=== PATIENT | male | born 1990 | race Caucasian/White ===

== ENCOUNTER 2018-09-24 16:38 | Emergency (ER) | payer BC ==
[~2018-09-24] VITALS: Ht 182.9 cm; Wt 79.4 kg
[2018-09-24 17:20] LABS: ABSOLUTE BASOPHILS 0.1 thou/uL (0.0-0.2); ABSOLUTE EOSINOPHILS 0.3 thou/uL (0.0-0.7); ABSOLUTE LYMPHOCYTES 2.2 thou/uL (0.8-5.3); ABSOLUTE MONOCYTES 0.6 thou/uL (0.0-1.2); ABSOLUTE NEUTROPHILS 3.1 thou/uL (1.6-8.1); BASOPHILS 0.8 %; EOSINOPHILS 4.7 %; HEMATOCRIT 42.2 % (42.0-52.0); HEMOGLOBIN 14.3 gm/dL (14.0-18.0); LYMPHOCYTES 35.4 %; MCH 28.6 pg (26.0-34.0); MCHC 33.8 g/dL (28.0-37.0); MCV 84.4 fL (80.0-100.0); MONOCYTES 9.1 %; MPV 8.3 fl. (7.2-11.1); NUCLEATED RBCS 0 /100WBC; PLATELET COUNT* 242 thou/uL (150-400); RDW-CV 13.5 % (10.5-14.5); WBC 6.3 thou/uL (4.0-11.0)
[2018-09-24 17:27] LABS: ANION GAP 11 mmol/L (7-16); BUN 14 mg/dL (7-18); CALCIUM 8.8 mg/dL (8.5-10.1); CHLORIDE 104 mmol/L (98-107); CO2 25 mmol/L (21-32); GLUCOSE 91 mg/dL (70-99); SODIUM 140 mmol/L (136-145)
[2018-09-24 17:36] LABS: ALBUMIN 3.8 g/dL (3.4-5.0); ALKALINE PHOSPHATASE 83 U/L (46-116); LIPASE 171 U/L (73-393); SGOT 21 U/L (15-37); SGPT 57 U/L (30-65); TOTAL BILIRUBIN 0.3 mg/dL (<0.1-1.0); TOTAL PROTEIN 7.2 g/dL (6.4-8.2); TROPONIN-I LEVEL <0.06 ng/mL (<0.06)
[2018-09-24] MEDS ORDERED: FLEXERIL PO (18:16)
[2018-09-24] MEDS ORDERED: NORCO 5-325 TA1 EAC1 PO (18:16)
[2018-09-24 18:38] VITALS: BP 109/75
--- NOTE | 2018-09-26 13:30 | EKG ---
[place] [address] ELECTROCARDIOGRAM REPORT Name: JAYLIN SCHAEFFER [id number] Admission: 09/24/18 Attend Phys: Discharge: 09/24/18 Date of : 86 Report #: [id number] THIS REPORT FOR: //name// [facility] ED Test Date: 2018-09-24 Test Time: 16:42:51 Pat Name: JAYLIN SCHAEFFER Department: Room: Gender: M [employer] Scheduler: KRISTEN : 1990 Requested By: Tanmay Calloway Order Number: [id number] MD: Ag Real Measurements Intervals [place] Rate: 85 P: 71 SC: 166 QRS: 136 QRSD: 96 T: 41 QT: 351 QTc: 418 Interpretive Statements Sinus rhythm Right axis deviation No previous ECG available for comparison Electronically Signed On 09-26-2018 13:29:58 CDT by Ag Real [email or web address] <ELECTRONICALLY SIGNED> By: Ag Real MD, [facility] 09/26/18 1329 1642 1642 Ag Real MD, FACC /EPI
== END 2018-09-24 18:39 | disposition home or self-care (01) ==
LOC: M.ERS 16:38
PROVIDERS: Emergency Medicine Emergency Medical Services
DX: R07.89 Other chest pain (principal); F17.210 Nicotine dependence, cigarettes, uncomplicated